=== PATIENT | male | born 1980 | race Caucasian/White ===

== ENCOUNTER 2020-03-21 18:46 | Emergency (ER) | payer OTHER ==
[~2020-03-21] VITALS: Ht 185.4 cm; Wt 90.4 kg
[2020-03-21 18:51] VITALS: BP 142/97
--- NOTE | 2020-03-21 19:16 | NUR ---
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 TO ROOM FROM LOBBY AT THIS TIME. AMBULATORY WITH STEADY GAIT.
[2020-03-21] MEDS ORDERED: LORazepam 2 MG/ML, 1ML IM ONE (20:00)
[2020-03-21] MEDS ORDERED: LORazepam 2 MG/ML, 1ML ONE (20:12)
== END 2020-03-21 21:03 | disposition left against medical advice (07) ==
LOC: ED 20:40
DX: F41.1 Generalized anxiety disorder (principal); Z76.0 Encounter for issue of repeat prescription
CPT/HCPCS: 96372; 99283; J2060